=== PATIENT | female | born 1985 | race Caucasian/White ===

== ENCOUNTER 2017-12-13 02:18 | Emergency (ER) | payer OTHER ==
[~2017-12-13] VITALS: Ht 149.9 cm; Wt 109.3 kg
[2017-12-13 02:24] VITALS: BP 135/90; Ht 149.9 cm; Wt 109.3 kg
== END 2017-12-13 03:15 | disposition left against medical advice (07) ==
LOC: ED 02:18
DX: Z53.21 Procedure and treatment not carried out due to patient leaving prior to being seen by health care provider (principal)

== ENCOUNTER 2019-11-04 23:15 | Emergency (ER) | payer OTHER ==
[~2019-11-04] VITALS: Ht 149.9 cm; Wt 113.9 kg
[2019-11-04 23:26] VITALS: Ht 149.9 cm; Wt 113.9 kg
[2019-11-05 02:02] VITALS: BP 131/80
== END 2019-11-05 02:02 | disposition home or self-care (01) ==
LOC: ED 23:15
DX: J18.9 Pneumonia, unspecified organism (principal); F17.210 Nicotine dependence, cigarettes, uncomplicated
CPT/HCPCS: 87804; J0696; J1885; Q0092